=== PATIENT | female | born 1970 | race Asian ===

== ENCOUNTER 2017-10-04 05:44 | Day surgery (SDC) | payer MEDICAID ==
[2017-10-04] MEDS ORDERED: MIDAZOLAM 1 MG/ML 2 ML INJ (07:41)
[2017-10-04] MEDS ORDERED: FENTAnyl 50 MCG/ML VIAL (07:41)
== END 2017-10-04 13:26 | disposition home or self-care (01) ==
LOC: GIL 05:44
DX: K21.9 Gastro-esophageal reflux disease without esophagitis (principal); K29.70 Gastritis, unspecified, without bleeding; I10 Essential (primary) hypertension
CPT/HCPCS: 43239; 84703; 87081